=== PATIENT | male | born 1950 | race Hispanic/Latino ===

== ENCOUNTER 2018-04-26 19:12 | Observation (INO) | payer MEDICARE ==
[2018-04-26 21:10] VITALS: BMI 35.1
[2018-04-26 22:30] LABS: Troponin I Less than 0.010 ng/mL (< 0.028)
[2018-04-26] MEDS ORDERED: Ondansetron ODT 4 MG TAB PO PRN (23:26)
[2018-04-26] MEDS ORDERED: Acetaminophen 325 MG TAB PO PRN (23:26)
[2018-04-26] MEDS ORDERED: Ondansetron HCl/PF 4 MG/2 ML Vial IVP PRN (23:26)
[2018-04-26] MEDS ORDERED: Dextrose 50% Abboject 50 ML SYRINGE SLOW IVP PRN (23:29)
[2018-04-26] MEDS ORDERED: Dextrose 5% in Water 1,000 ML IV PRN (23:29)
[2018-04-26] MEDS ORDERED: HumaLOG 300 UNITS/3 ML VIAL SC PRN (23:29)
[2018-04-27 01:21] LABS: #Eosinphils 0.1 thou/uL (0.0-0.7); #Lymphocytes 0.8 thou/uL (1.20-3.40); #Monocytes 0.3 thou/uL (0.11-0.59); #Neutrophils 7.2 thou/uL (1.40-6.50); %Basophils 0.2 % (0.0-1.0); %Eosinophils 0.8 % (0.0-10.0); %Lymphocytes 9.5 % (21.0-51.0); %Monocytes 3.8 % (0.0-10.0); %Neutrophils 85.7 % (42.0-75.0); Hemoglobin 13.4 g/dL (14.0-18.0); Mean Corpuscular HGB CONC 33.4 g/dL (32.0-36.0); Mean Corpuscular Hemoglobin 30.9 pg (27.0-31.0); Mean Corpuscular Volume 92.3 fL (78.0-98.0); Mean Platelet Volume 7.4 fL (7.4-10.4); Platelet Count 169 thou/uL (130-400); RBC Distribution Width 13.2 % (11.5-14.5); Red Blood Cell (RBC) Count 4.36 mill/uL (4.70-6.10); White Blood Cell (WBC) Count 8.5 thou/uL (4.8-10.8)
[2018-04-27 01:55] LABS: Troponin I Less than 0.010 ng/mL (< 0.028)
[2018-04-27 01:59] LABS: Anion Gap 14 mmol/L (10-20); BUN (Urea Nitrogen) 17 mg/dL (8.4-25.7); Calc. Creatinine Clearance 140 mL/min (70-130); Calcium 8.8 mg/dL (7.8-10.44); Carbon Dioxide 23 mmol/L (23-31); Chloride 105 mmol/L (98-107); Estimated GFR-MDRD Greater than 90; Glucose 151 mg/dL (80-115); Potassium 3.6 mmol/L (3.5-5.1); Sodium 138 mmol/L (136-145)
[2018-04-27] MEDS: Ketorolac Tromethamine 30 MG/ML VIAL IVP PRN ×2 (02:59→13:26)
--- NOTE | 2018-04-27 08:53 | HP ---
HISTORY OF PRESENT ILLNESS: This is a 68-year-old male with past medical history of diabetes mellitu s type 2, presenting with reproducible chest pain which per the patient started 2 days ago. Per the patient, the chest pain initially started on the right upper chest and in the past 2 days has radiate d to the left arm, right underneath his left breast. The patient states that the chest pain is repro ducible and nitro seemed to help with the chest pain. The patient states the aspirin does not really relieve his pain. Movement makes the pain worse. Upon further questioning, the patient states that he joined the gym, but explains that before starting to workout, he was still having the pain. The patient denies any headaches, dizziness, chills, palpitations, abdominal pain, shortness of breath. REVIEW OF SYSTEMS: Positive for reproducible chest pain. FAMILY HISTORY: The patient states that dad had CABG x3. Mom does not have any heart history. PAST MEDICAL HISTORY: Diabetes mellitus type 2. SOCIAL HISTORY: The patient denies any illicit drug use. Denies any alcohol use and denies any smok ing history. SURGICAL HISTORY: The patient does not have any surgical history. ALLERGIES: The patient does not have any known drug allergies. CURRENT MEDICATIONS: The patient takes insulin NovoLog, doses unknown. PHYSICAL EXAMINATION: VITAL SIGNS: The patient's blood pressure 125/60, heart rate 102, temperature of 98.9, respiratory r ate of 20, O2 saturation of 96 on room air. GENERAL: The patient is obese, lying in bed, does not appear to be in any acute distress, able to sp eak in full sentences. HEENT: Normocephalic, atraumatic. Pupils are equally round and reactive to light. Extraocular move ments intact. No sclerae icterus. No conjunctival pallor. Mucous membranes are moist. NECK: Supple, full range of motion. No JVD. LUNGS: Clear to auscultation bilaterally. No wheezing, no rales, no rhonchi is appreciated. CARDIOVASCULAR: S1, S2, regular rate and rhythm, no murmurs, no gallops, no rubs appreciated. The p atient has reproducible tenderness at the chest. ABDOMEN: Obese abdomen, soft, nontender, nondistended. Positive bowel sounds in all quadrants. EXTREMITIES: Patient has 5/5 upper extremity strength and 5/5 lower extremity strength with good pul ses bilaterally in upper and lower extremities. NEUROLOGIC: Cranial nerves II-XII grossly intact. No neurologic deficits noted. PSYCHIATRIC: Alert, oriented x3, and normal affect. LABORATORY DATA: WBC is 8.5, hemoglobin is 13.4, hematocrit is 40.2, platelets 169. Sodium 128, pot assium is 3.6, chloride 105, carbon dioxide 23, anion gap of 14, BUN 17, creatinine 0.77, glucose of 151. Troponin is less than 0.010 x2. ASSESSMENT AND PLAN: 1. This is a 68-year-old male with a family history of heart disease, diabetes, and obesity, being a dmitted for chest pain that radiates into the left arm. At this time, we will rule out acute coronar y syndrome. We will continue to follow troponins. We are going to order cardiac stress test and fol low up on cardiac stress test. If cardiac stress test is negative, we will discharge the patient jam e. 2. History of diabetes mellitus. We will do insulin sliding scale. 3. Deep venous thrombosis and gastrointestinal prophylaxis.
[2018-04-27] MEDS ORDERED: Prevnar 13-Val Conj/PF 0.5 ML SYRINGE IM ONE ×2 (09:00→11:45)
[2018-04-27] MEDS ORDERED: Famotidine 20 MG TAB PO SCH (09:00)
[2018-04-27 12:03] VITALS: BP 157/83; TEMP 98.1
--- NOTE | 2018-04-27 13:12 | NM ---
MYOCARDIAL PERFUSION EVALUATION: DATE: 04/27/18 INDICATION: Chest pain. RADIOPHARMACEUTICAL: 28.2 mCi technetium-99m sestamibi IV with stress and 9.7 mCi technetium-99m sestamibi IV with rest. COMPARISON: None. FINDINGS: When comparing the rest and stress images, no reversible myocardial perfusion defect is evident. Ther e is mild left ventricular dilatation. LVEF is estimated at 50%. There is normal wall motion and wall thickening. IMPRESSION: 1. No scintigraphic evidence to suggest reversible myocardial ischemia. 2. Mild left ventricular dilatation. 3. Estimated LVEF of 50%. POS: [facility]
--- NOTE | 2018-04-27 14:28 | PDOC.EVN ---
Event Note - Event Note Event Note: Discussed management and DC withDOMINGA Webb. agree with Dx and TX
--- NOTE | 2018-04-29 10:47 | DIS ---
DATE OF ADMISSION: 04/26/2018 DATE OF DISCHARGE: 04/27/2018 DISCHARGE DIAGNOSES: 1. Chest pain, noncardiac, improved. 2. Diabetes mellitus, stable. CONSULTATIONS: None. PERTINENT LABORATORY and X-RAY FINDINGS: WBC 8.5, RBC 4.36, hemoglobin 13.4. Glucose prior to disch arge 192. Troponin negative x2. Stress test showed no evidence to suggest a reversible myocardial i schemia with mild left ventricular dilation and an estimated left ventricular ejection fraction of 50 %. HOSPITAL COURSE: The patient was admitted upon presenting to the ER with some left-sided chest pain radiating to left shoulder, he had noticed these symptoms started about 2 months ago and present on a nd off for the last 2 months. He had noticed these symptoms after joining a gym in that area. Throu ghout the hospital course, his serial troponins were negative x2 and he underwent stress test to rule out any cardiac ischemic causes of his chest pain. His stress test revealed no evidence to suggest a reversible myocardial ischemia, mild left ventricular dilation and estimated his left ventricular e jection fraction of 50%. His chest pain resolved during hospital course after a dose of IV Toradol. It was recommended that patient take it easy over the next several days and go home and rest instead of going to the gym. He was also told to continue Tylenol and Motrin as needed for his pain as this has helped in the past. He has a history of diabetes mellitus and his blood sugar remained stable t hroughout the hospital course. He uses an insulin pump at home along with a sliding scale which he h as tolerated well. He denies having a PCP at the moment. Therefore, he was provided with resources which included a list of various local PCP offices that he can call for an appointment once he is dis charged from the hospital. He was examined prior to discharge and denied any chest pain, shortness o f breath, or abdominal pain. His blood pressure remained stable and he denied any other symptoms at that time. The discharge plan was then explained to him and he verbalized his understanding and agre ement with plan and he was stable for discharge on 04/27/2018. DISCHARGE MEDICATIONS: Insulin aspirate. Continue patient's insulin pump and use of basal rate along with sliding scale b.i .d. FOLLOWUP: The patient was provided resources for primary care providers in the local area and he was advised to call to make an appointment in the next 1-2 weeks. CONDITION ON DISCHARGE: Stable. ACTIVITY: As tolerated. DIET: Diabetic. CODE STATUS: FULL CODE. DISPOSITION: Home on 04/27/2018.
== END 2018-04-27 15:32 | disposition home or self-care (01) ==
LOC: 2SW 20:41
PROVIDERS: ADMIT Family Medicine; ATTEND Family Medicine
DX: R07.89 Other chest pain (principal); E11.9 Type 2 diabetes mellitus without complications; Z79.4 Long term (current) use of insulin; Z96.41 Presence of insulin pump (external) (internal)
CPT/HCPCS: 78452; 80048; 82962 ×2; 84484 ×2; 85025; 90670; 93017; 96374; 96376; A9500; G0009; G0378; 36415; 36416; 90471; J0153; J1885